=== PATIENT | female | born 1990 | race Caucasian/White ===

== ENCOUNTER 2016-10-30 23:42 | Emergency (ER) | payer SELFPAY ==
[~2016-10-30] VITALS: Ht 162.6 cm; Wt 113.6 kg
[2016-10-30 23:45] VITALS: TEMP 98.1
[2016-10-31 00:27] VITALS: BP 128/86; PULSE 79
== END 2016-10-31 00:37 | disposition home or self-care (01) ==
LOC: COL.ER 23:42
DX: M72.2 Plantar fascial fibromatosis (principal)